=== PATIENT | male | born 1980 ===

== ENCOUNTER 2019-02-11 18:41 | Emergency (ER) | payer SELFPAY ==
--- NOTE | 2019-02-11 21:19 | Emergency Department Report ---
Blank Doc - Documentation Documentation: Patient left the emergency room before triage. I did not see this patient.
== END 2019-02-11 20:30 | disposition left against medical advice (07) ==
LOC: ED 18:41
DX: F10.129 Alcohol abuse with intoxication, unspecified (principal); Z53.21 Procedure and treatment not carried out due to patient leaving prior to being seen by health care provider